=== PATIENT | male | born 1950 | race Caucasian/White ===

== ENCOUNTER 2020-07-12 08:00 | Outpatient (CLI) | payer MEDICARE, OTHER ==
[~2020-07-12 08:00] MED LIST: LIDOCAINE 1%-EPI 1:100K, 20ML ONE
== END 2020-07-12 23:59 | disposition home or self-care (01) ==
LOC: STAR 08:00 → EDSTATUS 17:00 → STAR 23:59
PROVIDERS: ATTEND Orthopaedic Surgery
DX: Z01.812 Encounter for preprocedural laboratory examination (principal); Z20.828 Contact with and (suspected) exposure to other viral communicable diseases; S83.241A Other tear of medial meniscus, current injury, right knee, initial encounter; X58.XXXA Exposure to other specified factors, initial encounter; Y93.89 Activity, other specified; Y92.89 Other specified places as the place of occurrence of the external cause; Y99.8 Other external cause status
CPT/HCPCS: 36415; 87635; J3490

== ENCOUNTER → 2021-01-16 | Outpatient (CLI) | payer MEDICARE ==
[~2021-01-16] MED LIST changes: +FINA1TAB16 PO; +FINA5TAB4 PO; -LIDOCAINE 1%-EPI 1:100K, 20ML ONE; +OMEP-110 PO; +TAMS-11 PO
== END | disposition home or self-care (01) ==
LOC: STAR 15:09
PROVIDERS: ATTEND Surgery
DX: Z01.818 Encounter for other preprocedural examination (principal); K40.90 Unilateral inguinal hernia, without obstruction or gangrene, not specified as recurrent; I51.7 Cardiomegaly; Z20.822 Contact with and (suspected) exposure to COVID-19
CPT/HCPCS: 93005; U0003

== ENCOUNTER 2021-01-23 07:57 | Day surgery (SDC) | payer MEDICARE ==
[~2021-01-23] VITALS: Ht 177.8 cm; Wt 87.8 kg
[~2021-01-23 07:57] MED LIST changes: +BUPIVACAINE/PF 0.5% ONE; +EPINEPHRINE 1 MG/ML, 1ML ONE
[2021-01-23] MEDS ORDERED: CHLORHEXIDINE 15 ML UDC PO ONE (08:30)
[2021-01-23] MEDS ORDERED: LACTATED RINGERS 1,000 ML IV SCH (08:30)
[2021-01-23 08:47] VITALS: BP 145/78
[2021-01-23] MEDS ORDERED: FENTANYL PF 250 MCG/5ML ONE (12:08)
[2021-01-23] MEDS ORDERED: SUGAMMADEX 200 MG/2 ML IVPush ONE (12:18)
[2021-01-23] MEDS ORDERED: PHENYLEPHRINE 10 MG/ML ONE (12:18)
[2021-01-23] MEDS ORDERED: MEPERIDINE/PF 25MG/0.5ML IVPush PRN (12:30)
[2021-01-23] MEDS ORDERED: LABETALOL 5MG/ML, 20ML IV PRN (12:30)
[2021-01-23] MEDS ORDERED: OXYcodone 5 MG/5 ML ORAL.SOL UDC PO PRN ×2 (12:30→13:30)
[2021-01-23] MEDS ORDERED: hydrALAzine 20 MG/ML, 1ML IV PRN (12:30)
[2021-01-23] MEDS ORDERED: ACETAMINOPHEN 325 MG TABLET PO PRN (12:30)
[2021-01-23] MEDS ORDERED: ONDANSETRON 2MG/ML, 2ML IVPush PRN (12:30)
[2021-01-23] MEDS ORDERED: morphine SULFATE 10 MG/ML, 1ML IVPush PRN (12:30)
[2021-01-23] MEDS ORDERED: EPHEDRINE 50 MG/ML, 1ML ONE (12:46)
[2021-01-23] MEDS ORDERED: OXYC5TAB2 PO (13:13)
[2021-01-23] MEDS ORDERED: ROCURONIUM 10MG/ML,5ML ONE (13:22)
[2021-01-23] MEDS ORDERED: CEFAZOLIN 1,000 MG ONE (13:22)
[2021-01-23] MEDS ORDERED: PROPOFOL 10 MG/ML, 20ML ONE (13:22)
[2021-01-23] MEDS ORDERED: DEXAMETHASONE 4 MG/ML, 1ML ONE (13:22)
[2021-01-23] MEDS ORDERED: ONDANSETRON 2MG/ML, 2ML ONE (13:22)
[2021-01-23] MEDS ORDERED: GLYCOPYRROLATE 0.2MG/1ML, 5ML ONE (13:22)
[2021-01-23] MEDS ORDERED: NEOSTIGMINE 1 MG/ML, 10ML ONE (13:22)
[2021-01-23] MEDS ORDERED: OXYcodone 5 MG/5 ML ORAL.SOL UDC ONE (13:41)
[2021-01-23] MEDS ORDERED: FENTANYL PF 100 MCG/2ML ONE (13:41)
[2021-01-23] MEDS: FENTANYL PF 100 MCG/2ML IV PRN ×2 (13:42→13:50)
[2021-01-23] MEDS ORDERED: HYDROmorphone 1 MG/ML, 1ML INJ ONE (14:00)
[2021-01-23] MEDS: HYDROmorphone 1 MG/ML, 1ML INJ IVPush PRN ×2 (14:03→14:09)
== END 2021-01-23 16:30 | disposition home or self-care (01) ==
LOC: OUT 07:57
PROVIDERS: ATTEND Surgery
DX: K40.90 Unilateral inguinal hernia, without obstruction or gangrene, not specified as recurrent (principal); K21.9 Gastro-esophageal reflux disease without esophagitis; N40.0 Benign prostatic hyperplasia without lower urinary tract symptoms; Z20.822 Contact with and (suspected) exposure to COVID-19; Z79.899 Other long term (current) drug therapy; Z91.018 Allergy to other foods
CPT/HCPCS: 49650; 87635; C1781; J0171; J0690; J1100; J1170; J2370; J2405; J2704; J2710; J3010; J7120